=== PATIENT | male | born 1955 | race Caucasian/White ===

== ENCOUNTER 2020-06-03 06:10 | Day surgery (SDC) | payer MEDICARE, MEDICAID ==
[2020-06-02 12:27] LABS: BASOPHILS # (AUTO) 0.1 X10'3 (0-0.2); BASOPHILS % (AUTO) 1.2 % (0-1); EOSINOPHILS # (AUTO) 0.3 X10'3 (0-0.9); EOSINOPHILS % (AUTO) 4.1 % (0-6); HEMATOCRIT 38.8 % (42.0-52.0); LYMPHOCYTES # (AUTO) 1.6 X10'3 (1.1-4.8); LYMPHOCYTES % (AUTO) 20.4 % (21-51); MEAN CORPUSCULAR HEMOGLOBIN 30.8 PG (27.0-31.0); MEAN CORPUSCULAR HGB CONC 33.4 g/dL (33.0-36.5); MEAN CORPUSCULAR VOLUME 92.2 FL (78-98); MONOCYTES # (AUTO) 0.6 X10'3 (0-0.9); MONOCYTES % (AUTO) 7.3 % (2-12); NEUTROPHILS # (AUTO) 5.2 X10'3 (1.8-7.7); PLATELET COUNT 236 X10'3 (140-440); RED BLOOD COUNT 4.21 X10'6 (4.70-6.10); RED CELL DISTRIBUTION WIDTH 13.7 % (11.5-14.5); WHITE BLOOD COUNT 7.7 X10'3 (4.5-11.0)
[2020-06-02 12:36] LABS: PARTIAL THROMBOPLASTIN TIME 25 SECONDS (22-32)
[2020-06-02 13:35] LABS: ALBUMIN 3.7 G/DL (3.4-5.0); BLOOD UREA NITROGEN 32 MG/DL (7-18); CALCIUM 9.7 MG/DL (8.5-10.1); CHLORIDE 103 MMOL/L (99-107); TOTAL CARBON DIOXIDE 23.1 MMOL/L (24-32)
[2020-06-02 13:39] LABS: ANION GAP 13 (8-16); POTASSIUM 4.5 MMOL/L (3.5-5.1); SODIUM 139 MMOL/L (135-145)
[2020-06-02 13:40] LABS: BUN/CREATININE RATIO 14.8 (5.4-32.0); CREATININE 2.16 MG/DL (0.60-1.10); GLUCOSE 137 MG/DL (70-104); eGFR 31 ML/MIN
[~2020-06-03] VITALS: Ht 162.6 cm; Wt 98.3 kg
[2020-06-03] VITALS (15 sets, daily range): BP systolic 155–180; BP diastolic 60–79
[~2020-06-03 06:10] MED LIST: CARV6.253 PO; CHOL100046 PO; GLIM4TAB7 PO; LISI40TA13 PO; OMEG1CAP46 PO; PRAV40TA3 PO; ST.300CA PO; VITA1TAB37 PO
[2020-06-03] MEDS ORDERED: diphenhydrAMINE 25mg capsule PO PRN (06:25)
[2020-06-03] MEDS ORDERED: sodium bicarbonate (8.4%) inj. 150 ML in dextrose 5%-water 1,000 ML IV ONE (06:25)
[2020-06-03] MEDS ORDERED: LORazepam 0.5 MG tablet PO PRN (06:25)
[2020-06-03] MEDS ORDERED: normal saline 1,000 ML IV SCH (06:30)
[2020-06-03] MEDS ORDERED: CLOP75TA34 PO (06:39)
[2020-06-03] MEDS ORDERED: DILT240C92 PO (06:39)
[2020-06-03] MEDS ORDERED: ALOG12.52 PO (06:39)
[2020-06-03] MEDS ORDERED: FURO40TA4 PO (06:39)
[2020-06-03] MEDS ORDERED: ATOR40TA72 PO (06:39)
[2020-06-03] MEDS ORDERED: POTA-82 PO (06:45)
[2020-06-03] MEDS ORDERED: METF500T PO (06:45)
[2020-06-03] MEDS ORDERED: TURM500C4 PO (06:45)
[2020-06-03] MEDS ORDERED: UBID30CA20 PO (06:45)
[2020-06-03] MEDS ORDERED: ASPI-1265 PO (06:45)
[2020-06-03] MEDS ORDERED: verapamil 2.5 mg/ml inj IV ONE (07:23)
[2020-06-03] MEDS ORDERED: midazolam 1 mg/ML 2ml injection ONE (07:24)
[2020-06-03] MEDS ORDERED: fentaNYL/PF 50MCG/1 ML 2ML syringe ONE (07:24)
[2020-06-03] MEDS ORDERED: LIDOcaine 1% (10mg/ml)w/preservative injection 20ml MDV ONE (07:24)
[2020-06-03] MEDS ORDERED: heparin 1,000unit/ml 10ml vial 10 ML ONE ×2 (07:26→09:39)
[2020-06-03] MEDS ORDERED: iohexol 350 MG/ML 50ML vial IV ONE (07:26)
[2020-06-03] MEDS ORDERED: iohexol 350MG/ML 100ml bottle IV ONE ×2 (07:27→08:50)
[2020-06-03] MEDS ORDERED: nitroGLYCERIN-Tridil 50MG/D5W 250 ML IV ONE (07:27)
[2020-06-03] MEDS ORDERED: heparin 25,000 UNIT/250ml bag 250 ML IV ONE (08:48)
[2020-06-03] MEDS ORDERED: clopidogrel 300mg tablet ONE (09:24)
[2020-06-03] MEDS ORDERED: HYDROcodone/acetaminophen 5mg/325mg tablet PO PRN (10:20)
[2020-06-03] MEDS: acetylcysteine 200 MG/ml 4ml vial PO SCH ×2 (10:41→18:28)
[2020-06-03] MEDS ORDERED: sodium bicarbonate (8.4%) inj. 150 MEQ in dextrose 5%-water 1,000 ML IV SCH (11:00)
[2020-06-03] MEDS ORDERED: hydrALAZINE 20mg/ml inj. IV PRN (11:05)
[2020-06-03] MEDS ORDERED: morphine 2 MG/ML inj. syringe IV ONE (11:05)
[2020-06-03] MEDS: HYDROcodone/acetaminophen 10/325mg tab PO PRN ×2 (16:49→18:30)
== END 2020-06-03 19:20 | disposition home or self-care (01) ==
LOC: SSTAY O 06:10
PROVIDERS: ATTEND Internal Medicine Cardiovascular Disease
DX: I25.10 Atherosclerotic heart disease of native coronary artery without angina pectoris (principal); E11.9 Type 2 diabetes mellitus without complications; J44.9 Chronic obstructive pulmonary disease, unspecified; E66.9 Obesity, unspecified; Z68.37 Body mass index [BMI] 37.0-37.9, adult; I11.0 Hypertensive heart disease with heart failure; I50.30 Unspecified diastolic (congestive) heart failure; M19.90 Unspecified osteoarthritis, unspecified site; E78.49 Other hyperlipidemia; Z79.82 Long term (current) use of aspirin; Z79.84 Long term (current) use of oral hypoglycemic drugs; Z79.899 Other long term (current) drug therapy; Z98.890 Other specified postprocedural states; Z87.891 Personal history of nicotine dependence; Z88.8 Allergy status to other drugs, medicaments and biological substances
CPT/HCPCS: 36415; 76937; 80048; 82948; 85025; 85347; 85610; 85730; 93005; 93458; 99152; 99153; C1725; C1751; C1769; C1874; C1894; C9600; J0360; J1644; J2001; J2250; J2270; J3010; J7030; Q0163; Q9967; A4620; J3490

== ENCOUNTER 2021-03-17 07:01 | Day surgery (SDC) | payer MEDICARE, MEDICAID ==
[2021-03-16 16:37] LABS: BASOPHILS # (AUTO) 0.1 X10'3 (0-0.2); BASOPHILS % (AUTO) 0.9 % (0-1); EOSINOPHILS # (AUTO) 0.3 X10'3 (0-0.9); HEMATOCRIT 38.2 % (42.0-52.0); HEMOGLOBIN 12.9 g/dl (14.0-17.9); LYMPHOCYTES # (AUTO) 1.7 X10'3 (1.1-4.8); LYMPHOCYTES % (AUTO) 21.6 % (21-51); MEAN CORPUSCULAR HGB CONC 33.9 g/dL (33.0-36.5); MEAN CORPUSCULAR VOLUME 91.5 FL (78-98); MONOCYTES # (AUTO) 0.5 X10'3 (0-0.9); MONOCYTES % (AUTO) 6.7 % (2-12); NEUTROPHILS # (AUTO) 5.1 X10'3 (1.8-7.7); NEUTROPHILS % (AUTO) 66.8 % (42-75); PLATELET COUNT 229 X10'3 (140-440); RED BLOOD COUNT 4.18 X10'6 (4.70-6.10); RED CELL DISTRIBUTION WIDTH 13.8 % (11.5-14.5); WHITE BLOOD COUNT 7.6 X10'3 (4.5-11.0)
[2021-03-16 16:42] LABS: ANION GAP 12 (8-16); BLOOD UREA NITROGEN 42 MG/DL (7-18); BUN/CREATININE RATIO 18.8 (5.4-32.0); CALCIUM 9.6 MG/DL (8.5-10.1); CHLORIDE 101 MMOL/L (99-107); CREATININE 2.24 MG/DL (0.60-1.10); GLUCOSE 121 MG/DL (70-104); POTASSIUM 5.2 MMOL/L (3.5-5.1); SODIUM 135 MMOL/L (135-145); TOTAL CARBON DIOXIDE 22.3 MMOL/L (24-32); eGFR 29 ML/MIN
[2021-03-16 16:44] LABS: PARTIAL THROMBOPLASTIN TIME 25 SECONDS (22-32)
[2021-03-17] VITALS (12 sets, daily range): BP systolic 136–160; BP diastolic 56–70
[~2021-03-17] VITALS: Ht 162.6 cm; Wt 93.9 kg
[~2021-03-17 07:01] MED LIST changes: +ALOG12.52 PO; +ASPI-1265 PO; +ATOR40TA72 PO; -CHOL100046 PO; +CLOP75TA34 PO; +DILT240C92 PO; +FURO40TA4 PO; -GLIM4TAB7 PO; -LISI40TA13 PO; +METF500T PO; +POTA-82 PO; -PRAV40TA3 PO; +TURM500C4 PO; +UBID30CA20 PO
[2021-03-17] MEDS ORDERED: normal saline 1,000 ML IV SCH (07:30)
[2021-03-17] MEDS ORDERED: nitroGLYCERIN-Tridil 50MG/D5W 250 ML IV ONE (07:41)
[2021-03-17] MEDS ORDERED: fentaNYL/PF 50MCG/1 ML 2ML syringe ONE (07:42)
[2021-03-17] MEDS ORDERED: LIDOcaine 1% (10mg/ml)w/preservative injection 20ml MDV ONE (07:42)
[2021-03-17] MEDS ORDERED: iohexol 350 MG/ML 50ML vial IV ONE (07:42)
[2021-03-17] MEDS ORDERED: heparin 1,000unit/ml 10ml vial 10 ML ONE (07:42)
[2021-03-17] MEDS ORDERED: midazolam 1 mg/ML 2ml injection ONE (07:42)
[2021-03-17] MEDS ORDERED: iohexol 350MG/ML 100ml bottle IV ONE ×2 (07:42→09:25)
[2021-03-17] MEDS ORDERED: ATOR-2 PO (08:09)
[2021-03-17] MEDS ORDERED: LORazepam 1 MG tablet PO ONE (08:25)
[2021-03-17] MEDS ORDERED: diphenhydrAMINE 25mg capsule PO PRN (08:25)
[2021-03-17] MEDS ORDERED: diphenhydrAMINE 25mg capsule PO ONE (08:25)
[2021-03-17] MEDS ORDERED: LORazepam 0.5 MG tablet PO PRN (08:25)
[2021-03-17] MEDS: acetylcysteine 200 MG/ml 4ml vial PO SCH ×2 (08:35→10:53)
[2021-03-17] MEDS ORDERED: sodium bicarbonate (8.4%) inj. 150 ML in dextrose 5%-water 1,000 ML IV ONE (08:55)
[2021-03-17] MEDS ORDERED: sodium bicarbonate (8.4%) inj. 150 MEQ in dextrose 5%-water 1,000 ML IV SCH (10:55)
[2021-03-17] MEDS ORDERED: HYDROcodone/acetaminophen 10/325mg tab PO PRN (11:10)
== END 2021-03-17 17:00 | disposition home or self-care (01) ==
LOC: SSTAY O 07:01
PROVIDERS: ATTEND Internal Medicine Cardiovascular Disease
DX: R94.39 Abnormal result of other cardiovascular function study (principal); R06.02 Shortness of breath; R53.83 Other fatigue; I25.10 Atherosclerotic heart disease of native coronary artery without angina pectoris; E11.9 Type 2 diabetes mellitus without complications; J44.9 Chronic obstructive pulmonary disease, unspecified; I11.0 Hypertensive heart disease with heart failure; I50.30 Unspecified diastolic (congestive) heart failure; G47.30 Sleep apnea, unspecified; E78.49 Other hyperlipidemia; E66.9 Obesity, unspecified; Z68.35 Body mass index [BMI] 35.0-35.9, adult; M19.90 Unspecified osteoarthritis, unspecified site; Z95.5 Presence of coronary angioplasty implant and graft; Z79.84 Long term (current) use of oral hypoglycemic drugs; Z79.899 Other long term (current) drug therapy; Z79.82 Long term (current) use of aspirin; Z79.01 Long term (current) use of anticoagulants; Z87.891 Personal history of nicotine dependence
CPT/HCPCS: 36415; 76937; 80048; 82948; 85025; 85610; 85730; 93005; 93458; 99152; 99153; C1760; C1769; C1894; J1644; J2250; J3010; J3490; J7030; Q0163; Q9967; A6258